=== PATIENT | female | born 1950 | race Caucasian/White ===

== ENCOUNTER 2016-09-02 06:07 | Day surgery (SDC) | payer MEDICARE ==
--- NOTE | ~2016-09-02 | OP ---
Record Of Operation [facility] [address] [place]. [address] NAME: PIETER SU : 54 STATUS : [facility]#: [id number] AGE: 65 ADM/REG DATE : 09/02/16 MR#: [id number] REPORT SERV DATE: 09/03/16 DICTATED BY: MARY MCKEON DATE: 09/03/16 REPORT STATUS : Draft TRANSCRIBED BY: MODL DATE: 09/03/16 DATE OF PROCEDURE: 09/02/2016 TITLE OF OPERATION: Left extracorporeal shockwave lithotripsy. PREOPERATIVE DIAGNOSIS: Left renal stone. POSTOPERATIVE DIAGNOSIS: Left renal stone. INDICATIONS: Ms. Su is a 65-year-old female with a 1.5 cm left renal stone. She was extensively counseled regarding her options including shockwave lithotripsy, ureteroscopy, and PCNL. We are going to plan on doing shockwave lithotripsy today. She understands by the size of the stone that her success rate may be slightly lower. ANESTHESIA: Sedation. COMPLICATIONS: None. IMPLANTS: None. SPECIMENS: None. NARRATIVE: The patient was brought to the lithotripsy suite and sedation was performed. Levaquin was given for preoperative antibiotics. The stone was localized in the AP and lateral planes. The Lithotripter active head was placed in the correct position. The lithotripsy was then begun with slowly increasing the rate in order to prevent complications. Eventually 2500 shocks were given to the stone with a max power of 5. Fluoroscopy time was 1 minute. There was a good radiographic response of the stone to the treatment. Instructions given to the patient on how to help pass the stones. She will be sent home on Flomax and pain medications. I will see her back in two weeks with the KUB prior. There are no complications. TANNER/SUSY Mary Mckeon MD / [id number] CC: MD Thai Rincon MD
[~2016-09-02 06:07] MED LIST: ALLEGRA180 PO; ALTA2.5 PO; AQUASOL E50 UNT/ML PO; ASAB PO; BIOTIN10 MG PO; FISH OIL1200 MG PO; FISH-EPA1000 MG PO; HUMALOG SC; KLOR-CON M2020 MEQ PO; KLOR-CON20 MEQ PO; L40 PO; LANTUS SC; LEVEMIR SC; LOP25 PO; LORT7 PO; MOTRIN IB200 MG PO; MULTIVIT/MIN PO; MULTIVITAMI1 PO; NOVOLOG SC; PRIN2.5 PO; TOPXL25 PO; VITE PO; ZYRTEC ALLGY10 MG PO
[2016-09-02 07:37] LABS: ASCORBIC ACID (UR NOT ORDER) NEG (NEG); BILIRUBIN, URINE NEGATIVE (NEG); KETONE, URINE NEGATIVE (NEG); LEUKOCYTE ESTERASE(NOT OR TRACE (NEG); WBC (NOT ORDERED) (RFLEX) 1 (0-5)
[2016-09-02 07:41] LABS: HEMATOCRIT 41.6 % (36.0-48.0); HEMOGLOBIN 14.1 g/dL (12.0-16.0)
[2016-09-02 07:51] LABS: BUN (BLOOD UREA NITROGEN) 23 MG/DL (6-23); CHLORIDE, SERUM 103 MMOL/L (96-112); CO2 (CARBON DIOXIDE) 32 MMOL/L (24-34); CREATININE 0.95 MG/DL (0.55-1.02); GFR AFRICAN AMERICAN 74 ML/MIN (>=60); GFR NON AFRICAN AMERICAN 64 ML/MIN (>=60); GLUCOSE, SERUM 147 MG/DL (60-99); SODIUM, SERUM 145 MMOL/L (135-148)
[2016-09-02 07:58] LABS: PFA (COL/EPI) 102 SEC (72-180)
== END 2016-09-02 18:07 | disposition home or self-care (01) ==
LOC: SDC 06:07
PROVIDERS: Urology
PROC: 0TF4XZZ Fragmentation in Left Kidney Pelvis, External Approach (ICD-10-PCS; principal; 2016-09-02 08:00)
DX: N20.0 Calculus of kidney (principal); I42.8 Other cardiomyopathies; I11.0 Hypertensive heart disease with heart failure; I50.9 Heart failure, unspecified; E11.9 Type 2 diabetes mellitus without complications; G89.29 Other chronic pain; M54.5 Low back pain; M19.90 Unspecified osteoarthritis, unspecified site; K21.9 Gastro-esophageal reflux disease without esophagitis; Z95.810 Presence of automatic (implantable) cardiac defibrillator; Z88.0 Allergy status to penicillin; Z79.82 Long term (current) use of aspirin; Z79.4 Long term (current) use of insulin; Z79.899 Other long term (current) drug therapy; Z98.41 Cataract extraction status, right eye; Z96.1 Presence of intraocular lens; Z90.710 Acquired absence of both cervix and uterus; Z98.890 Other specified postprocedural states
CPT/HCPCS: 50590; 74000; 80048; 81001; 82962; 85014; 85018; 85576; 93005; J2250; J3010